=== PATIENT | female | born 1980 | race Caucasian/White ===

== ENCOUNTER 2022-05-19 13:13 | Emergency (ER) | payer OTHER ==
[~2022-05-19] VITALS: Ht 170.2 cm; Wt 95.2 kg
[2022-05-19] MEDS ORDERED: Amoxicillin500 MG PO (13:57)
== END 2022-05-19 13:57 | disposition home or self-care (01) ==
LOC: ER 13:13
DX: K04.7 Periapical abscess without sinus (principal); Z87.891 Personal history of nicotine dependence
CPT/HCPCS: 99282